=== PATIENT | female | born 1970 | race Caucasian/White ===

== ENCOUNTER 2017-04-30 09:57 | Observation (INO) ==
--- NOTE | 2017-04-30 10:04 | Emergency Department Note ---
Disposition Clinical Impression: Iron adverse reaction Qualifiers: Encounter type: initial encounter Qualified Code(s): T45.4X5A - Adverse effect of iron and its compounds, initial encounter Chest pain Qualifiers: Chest pain type: unspecified Qualified Code(s): R07.9 - Chest pain, unspecified Disposition: Home, Self-Care Condition: Good Reasons to Return/Additional Instructions: Follow-up with primary care physician as needed. Continue to take benadryl as needed for rash, tylenol as needed for headache. Return to the ER for any new or worsening symptoms including return of chest pain, shortness of breath, development of facial swelling, tongue swelling, difficulty breathing or swallowing. Referrals: Charlotte Dunn DO [Primary Care Provider] - Forms: ED Satisfaction Letter, Work/School Release Time of Disposition: 14:06 Chest Pain HPI - General Chief Complaint: ED General Medical Stated Complaint: Reaction to Iron infusion Time Seen by Provider: 04/30/17 10:01 Source: patient Mode of arrival: ambulatory Limitations: no limitations Vital Signs Reviewed: Yes Nursing Notes Reviewed: Yes - History of Present Illness HPI Narrative: Patient is a 46-year-old female with past medical history of anemia, iron deficiency. She states that she has had had this diagnosis for several months. She has been taking daily and iron supplements without any improvement. Therefore, she was started on iron infusions. Today was her first time infusion. Prior to appointment, patient had no symptoms. The patient was started around 9:30 AM, presently 30 minutes ago. About 5 minutes into the infusion, nursing staff states the patient began complaining of chest tightness , shortness of breath, headache, back pain, generalized fatigue, facial flushing. Patient received about 25 mL of the infusion and then it was stopped. Patient was brought to the ER due to nursing staff having no standing orders at [facility] for Benadryl or Tylenol. Currently, the patient states that hurt his chest tightness has gone away, shortness breath has resolved. She currently has a headache and low back pain. Otherwise, no other symptoms currently. Denies any fever, nausea, vomiting, stiff neck, URI symptoms, abdominal pain at this time. Severity scale (1-10): 0 - Related Data Home Medications Medication Instructions Recorded Confirmed Cholecalciferol (D-3) [Vitamin D] 2,000 unit PO DAILY 01/02/16 09/07/16 Estradiol [Vivelle-Dot] 1 each TD Q3D 01/02/16 09/07/16 Gabapentin [Neurontin] 600 mg PO HS 01/02/16 09/07/16 Pantoprazole Sodium [Protonix] 40 mg PO DAILY 01/02/16 09/07/16 ARIPiprazole [Abilify] 5 mg PO HS 06/21/16 09/07/16 FLUoxetine HCl [Fluoxetine HCl] 40 mg PO DAILY 06/21/16 09/07/16 Furosemide [Lasix] 20 mg PO DAILY 09/07/16 09/07/16 Multivitamin [One Daily 1 each PO DAILY 09/07/16 09/07/16 Multivitamin] Phentermine/Topiramate [Qsymia 7.5 1 each PO DAILY 09/07/16 09/07/16 mg-46 mg Capsule] traZODone [TraZODone] 50 - 100 mg PO HS PRN 09/07/16 09/07/16 Previous Rx's Medication Instructions Recorded Ketorolac [Toradol] 10 mg PO Q6HR #15 tablet 11/20/16 Erythromycin OPTH Oint 1 appl BOTH EYES Q3H #1 tube 03/30/17 Allergies Allergy/AdvReac Type Severity Reaction Status Date / Time sulfamethoxazole Allergy Hives Verified 09/07/16 11:12 [From Bactrim] trimethoprim [From Bactrim] Allergy Hives Verified 09/07/16 11:12 All systems ED: reviewed and negative except as stated. Constitutional: Denies: fever Cardiovascular: Reports: chest pain Respiratory: Reports: dyspnea Gastrointestinal: Denies: abdominal pain, nausea, vomiting Musculoskeletal: Reports: back pain, myalgia. 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 Absent: tenderness, meningismus - Chest Chest inspection: Present: normal inspection, symmetric chest wall rise - Respiratory Respiratory exam: Present: normal lung sounds bilaterally. Absent: respiratory distress, wheezes, stridor, accessory muscle use, prolonged expiratory phase - Cardiovascular Cardiovascular exam: Present: regular rate, normal rhythm, normal heart sounds - Abdominal Exam Abdominal exam: Present: soft, Non-Tender. Absent: tenderness, distention, guarding, rebound, rigidity - Extremities Exam Extremities exam: Present: normal inspection, full ROM. Absent: tenderness, pedal edema - Neurological Exam Neurological exam: Present: alert, oriented X3 - Psychiatric Psychiatric exam: Present: normal affect, normal mood - Skin Skin exam: Present: warm, dry, intact, normal color Course Course Narrative: Vitals within normal limits. Physical exam shows heart regular rate and rhythm , lungs clear to auscultation, abdomen soft and benign. No rash present at this time. No lip or tongue swelling. No current difficulty with breathing or swallowing. Patient is in no acute distress. This is likely an adverse reaction from an iron infusion. We will give the patient a gram of Tylenol, 50 mg of Benadryl, 325 aspirin. Also perform cardiac workup including EKG, chest x -ray, troponin. We will trend troponin level in 2 hours. Chest discomfort was likely due to adverse reaction time of dictation but will perform cardiac workup for full assessment. 12:07 EKG showed normal sinus rhythm with no acute ST changes. Basic blood work showed no major abnormalities. Troponin negative. Two-hour troponin ordered for noon. Chest x-ray showed mildly enlarged cardiomediastinal silhouette but could represent primary megaly or pericardial effusion. Bedside ultrasound showed no pericardial effusion. However, patient now complains of return of chest tightness. We will perform CT of the chest for further evaluation. Patient also relates her headache 7 out of 10 after receiving aspirin and Tylenol. Discussed possible admission for chest pain rule out the patient. She was agreeable with this plan. 14:02 CTA of the chest was negative for any acute cardiopulmonary process, negative for PE. Patient is still having mild to moderate chest discomfort despite the addition of [place] for head and chest pain. Waiting on 2 hour troponin and then will admit for chest pain rule out, trending troponin levels, possible echocardiogram in the morning. Chest X-Ray 04/30/17 10:04 IMPRESSION: Mildly enlarged cardiomediastinal silhouette may represent cardiomegaly and/or pericardial effusion. No focal consolidation, pneumothorax, or sizable pleural effusion. D/ / Andrzej Mackenzie MD / Andrzej Mackenzie MD Interpreting Provider: Andrzej Mackenzie MD Chest CTA 04/30/17 12:07 IMPRESSION: No evidence of pulmonary embolism or acute pulmonary abnormality. D/ / Jassi Wyman / Jassi Wyman Interpreting Provider: Jassi Wyman Chest X-Ray 04/30/17 10:04 IMPRESSION: Mildly enlarged cardiomediastinal silhouette may represent cardiomegaly and/or pericardial effusion. No focal consolidation, pneumothorax, or sizable pleural effusion. D/ / Andrzej Mackenzie MD / Andrzej Mackenzie MD Interpreting Provider: Andrzej Mackenzie MD Vital Signs Temperature 98.2 F 04/30/17 09:59 Pulse Rate 83 04/30/17 09:59 Respiratory Rate 16 04/30/17 09:59 Blood Pressure 134/86 04/30/17 09:59 O2 Sat by Pulse Oximetry 100 04/30/17 09:59 Temperature 98.2 F 04/30/17 09:59 Pulse Rate 76 04/30/17 14:22 Respiratory Rate 16 04/30/17 14:22 Blood Pressure 139/84 04/30/17 14:22 O2 Sat by Pulse Oximetry 94 04/30/17 14:22 Oxygen Delivery Oxygen Delivery Room Air Chest Pain - MDM Narrative Medical decision making narrative: Vitals within normal limits. Physical exam shows heart regular rate and rhythm , lungs clear to auscultation, abdomen soft and benign. No rash present at this time. No lip or tongue swelling. No current difficulty with breathing or swallowing. Patient is in no acute distress. This is likely an adverse reaction from an iron infusion. We will give the patient a gram of Tylenol, 50 mg of Benadryl, 325 aspirin. Also perform cardiac workup including EKG, chest x -ray, troponin. We will trend troponin level in 2 hours. Chest discomfort was likely due to adverse reaction time of dictation but will perform cardiac workup for full assessment. 12:07 EKG showed normal sinus rhythm with no acute ST changes. Basic blood work showed no major abnormalities. Troponin negative. Two-hour troponin ordered for noon. Chest x-ray showed mildly enlarged cardiomediastinal silhouette but could represent primary megaly or pericardial effusion. Bedside ultrasound showed no pericardial effusion. However, patient now complains of return of chest tightness. We will perform CT of the chest for further evaluation. Patient also relates her headache 7 out of 10 after receiving aspirin and Tylenol. Discussed possible admission for chest pain rule out the patient. She was agreeable with this plan. 14:02 CTA of the chest was negative for any acute cardiopulmonary process, negative for PE. Patient is still having mild to moderate chest discomfort despite the addition of [place] for head and chest pain. Waiting on 2 hour troponin and then will admit for chest pain rule out, trending troponin levels, possible echocardiogram in the morning. - Medical Records Medical records reviewed: Yes I reviewed the patient's medical records. - Lab Data Lab results reviewed: Yes I reviewed the patient's lab results. Result diagrams: 04/30/17 10:12 04/30/17 10:12 Lab Results 04/30/17 04/30/17 04/30/17 Range/Units 10:12 10:12 10:12 WBC 6.6 (4.3-11.1) K/mcL RBC 4.16 (3.82-4.97) M/mcL Hgb 10.8 L (11.5-15.4) g/dL Hct 35.1 L (35.3-44.9) % MCV 84.4 (83.0-100.0) fL MCH 26.0 L (28.0-33.3) pg MCHC 30.8 L (31.6-35.5) g/dL RDW 13.7 (11.5-14.5) % Plt Count 306 (140-400) K/mcL MPV 10.5 (9.4-12.4) fL Immature Gran % 0.9 (0-4) % Seg Neutrophils % 78.1 % Lymphocytes % 16.6 % Monocytes % 3.8 % Eosinophils % 0.3 % Basophils % 0.3 % Neutrophils # 5.2 (1.6-8.9) K/mcL Lymphocytes # 1.1 (0.6-4.6) K/mcL Monocytes # 0.3 (0.0-1.3) K/mcL Eosinophils # 0.0 (0.0-0.6) K/mcL Basophils # 0.0 (0.0-0.2) K/mcL Sodium 137 (136-145) mEq/L Potassium 4.2 (3.5-5.1) mEq/L Chloride 106 (98-107) mEq/L Carbon Dioxide 24 (23-29) mEq/L BUN 14 (6-20) mg/dL Creatinine 0.62 (0.60-1.20) mg/dL Est GFR ( Amer) > 60 (> 60) Est GFR (Non-Af Amer) > 60 (> 60) BUN/Creatinine Ratio 23 (6-26) Glucose 105 (70-105) mg/dL Calculated Osmolality 285 (280-300) Calcium 9.2 (8.6-10.3) mg/dL Troponin I < 0.03 (< 0.04) ng/mL 04/30/17 Range/Units 13:50 WBC (4.3-11.1) K/mcL RBC (3.82-4.97) M/mcL Hgb (11.5-15.4) g/dL Hct (35.3-44.9) % MCV (83.0-100.0) fL MCH (28.0-33.3) pg MCHC (31.6-35.5) g/dL RDW (11.5-14.5) % Plt Count (140-400) K/mcL MPV (9.4-12.4) fL Immature Gran % (0-4) % Seg Neutrophils % % Lymphocytes % % Monocytes % % Eosinophils % % Basophils % % Neutrophils # (1.6-8.9) K/mcL Lymphocytes # (0.6-4.6) K/mcL Monocytes # (0.0-1.3) K/mcL Eosinophils # (0.0-0.6) K/mcL Basophils # (0.0-0.2) K/mcL Sodium (136-145) mEq/L Potassium (3.5-5.1) mEq/L Chloride (98-107) mEq/L Carbon Dioxide (23-29) mEq/L BUN (6-20) mg/dL Creatinine (0.60-1.20) mg/dL Est GFR ( Amer) (> 60) Est GFR (Non-Af Amer) (> 60) BUN/Creatinine Ratio (6-26) Glucose (70-105) mg/dL Calculated Osmolality (280-300) Calcium (8.6-10.3) mg/dL Troponin I < 0.03 (< 0.04) ng/mL - EKG Data EKG attestation: Yes I reviewed and interpreted this EKG. EKG results narrative: 04/30/2017 at 10:03. Normal sinus rhythm. Rate 78, KS 136, QRS 94, QTC 406. No acute ST elevation or depression. Heart Score - Score History: Slightly Suspicious EKG: Normal Age: 45-65 Risk Factors: No risk factors known Troponin: Less than normal limit HEART Score Total: 1
[2017-04-30] MEDS ORDERED: Aspirin 325 MG TABLET PO ONE (10:05)
[2017-04-30 10:18] LABS: Basophils % 0.3 %; Eosinophils % 0.3 %; Hematocrit 35.1 % (35.3-44.9); Hemoglobin 10.8 g/dL (11.5-15.4); Immature Granulocytes % 0.9 % (0-4); Lymphocytes # 1.1 K/mcL (0.6-4.6); Lymphocytes % 16.6 %; Mean Corpuscular HGB Conc 30.8 g/dL (31.6-35.5); Mean Corpuscular Volume 84.4 fL (83.0-100.0); Mean Platelet Volume 10.5 fL (9.4-12.4); Monocytes # 0.3 K/mcL (0.0-1.3); Monocytes % 3.8 %; Neutrophils # 5.2 K/mcL (1.6-8.9); Platelet Count 306 K/mcL (140-400); Red Blood Count 4.16 M/mcL (3.82-4.97); Red Cell Distribution Width 13.7 % (11.5-14.5); Segmented Neutrophils % 78.1 %
[2017-04-30 10:36] LABS: BUN/Creatinine Ratio 23 (6-26); Blood Urea Nitrogen 14 mg/dL (6-20); Calcium 9.2 mg/dL (8.6-10.3); Carbon Dioxide 24 mEq/L (23-29); Chloride 106 mEq/L (98-107); Glucose 105 mg/dL (70-105); Osmolality,Calculated 285 (280-300); Potassium 4.2 mEq/L (3.5-5.1); Sodium 137 mEq/L (136-145); eGFR For African Americans > 60 (> 60); eGFR For Non-African Americans > 60 (> 60)
[2017-04-30] MEDS ORDERED: *HR* HYDROcodone/Acet 5/325 mg TABLET PO ONE (12:52)
[2017-04-30] MEDS ORDERED: *HR* LORazepam 1 MG TABLET PO ONE (14:02)
[2017-04-30] MEDS ORDERED: Nitroglycerin 0.4 MG TAB.SUBL SL PRN (14:46)
[2017-04-30] MEDS ORDERED: Naloxone 0.4 MG/ML INJ IVP PRN (14:48)
--- NOTE | 2017-04-30 15:14 | Internal Med History&Physical ---
<HudsonmikeyÁngel pedersen M - Last Filed: 04/30/17 15:11> Date of Encounter: 04/30/17 Time of Encounter: 15:11 Assessment and Plan (1) Chest pain Current visit: Yes Status: Acute We will admit the patient to the hospitalist service under observation status. Trend cardiac enzymes. We will check an echocardiogram. I believe most of the patient's symptoms are likely secondary to hypersensitivity/allergic reaction to iron transfusions. We will continue to monitor the patient. Check hemoglobin A1c as well as lipid panel to risk stratify the patient. The patient discussed factors include obesity and previous smoking. Given the fact that tomorrow is Tuesday, I plan on discharging the patient tomorrow as her cardiac enzymes remained not elevated and her Echocardiogram comes back unremarkable. Qualifiers: Chest pain type: unspecified Qualified Code(s): R07.9 - Chest pain, unspecified (2) GERD (gastroesophageal reflux disease) Current visit: Yes Status: Acute Continue patient's home medications. She is on Protonix Qualifiers: Esophagitis presence: without esophagitis Qualified Code(s): K21.9 - Gastro -esophageal reflux disease without esophagitis (3) Depression Current visit: Yes Status: Acute Resume home antidepressants. She takes trazodone and fluoxetine Qualifiers: Depression Type: unspecified Qualified Code(s): F32.9 - Major depressive disorder, single episode, unspecified (4) Restless leg syndrome Current visit: Yes Status: Acute Continue gabapentin. I think this is most likely coming from iron deficiency causing her restless leg. (5) DVT prophylaxis Current visit: Yes Status: Acute Lovenox (6) Iron adverse reaction Current visit: Yes Status: Acute Qualifiers: Encounter type: initial encounter Qualified Code(s): T45.4X5A - Adverse effect of iron and its compounds, initial encounter Internal Medicine - H&P: HPI Chief complaint: Chest pain Admitted From: Home Plans for Post Hospital Care: Home History of present illness: Ms. Lenz is a 46 year old female who has a history of GERD, iron deficiency anemia, depression, restless leg syndrome who [facility] symptoms including shortness of breath headache numbness in the back as well as chest pressure that she experienced only 5 minutes after iron incision had started. The patient has and diagnosed with iron deficiency anemia and has not responded well to oral supplements. Today she was referred for her first transfusion. 5 minutes into it she describes feeling of doom. She says she started experiencing chest pressure in the mid chest that was about 8 out of 10 with no radiation. She had no diaphoresis. She experienced difficulty in breathing saying that she was gasping for air. She also felt headache. And because of that she was transferred to the ER where she received Benadryl. She says all of her symptoms did resolve minutes after they started except for the chest pressure which continues to have. She underwent an evaluation in the ED with workup being unremarkable including troponins. EKG with no ST or T-wave changes. Rest unremarkable unremarkable. She remained hemodynamically stable in the ED although her blood pressure was somewhat elevated on initial presentation. She tells me she had a stress test back around 2004 which was treadmill stress test was unremarkable. She is a former smoker about a pack a day for 20 years but quit about 4-5 years ago. She has no family history of heart disease. She denies any fever or chills blurry Vision nausea vomiting, shortness of breath abdominal pain symptoms or neurological symptoms. Past Med Surg Social Fam HX - Past Medical History Medical history: GERD, kidney stones, migraine, other Psychiatric history: anxiety, depression - Past Surgical History Surgical History: , hysterectomy, bariatric surgery - Social History Smoking Status: Former smoker Smokeless Tobacco Status: No Alcohol use: none Drug use: none Internal Medicine - H&P: Meds Cholecalciferol (D-3) [Vitamin D] 2,000 unit PO DAILY 01/02/16 [History] Estradiol [Vivelle-Dot] 1 each TD Q3D 01/02/16 [History] Gabapentin [Neurontin] 600 mg PO HS 01/02/16 [History] Pantoprazole Sodium [Protonix] 40 mg PO DAILY 01/02/16 [History] ARIPiprazole [Abilify] 5 mg PO HS 06/21/16 [History] FLUoxetine HCl [Fluoxetine HCl] 40 mg PO DAILY 06/21/16 [History] Furosemide [Lasix] 20 mg PO DAILY 09/07/16 [History] Multivitamin [One Daily Multivitamin] 1 each PO DAILY 09/07/16 [History] Phentermine/Topiramate [Qsymia 7.5 mg-46 mg Capsule] 1 each PO DAILY 09/07/16 [ History] traZODone [TraZODone] 50 - 100 mg PO HS PRN 09/07/16 [History] Ketorolac [Toradol] 10 mg PO Q6HR #15 tablet 11/20/16 [Rx] Erythromycin OPTH Oint 1 appl BOTH EYES Q3H #1 tube 03/30/17 [Rx] 3 Allergy/AdvReac Type Severity Reaction Status Date / Time sulfamethoxazole Allergy Hives Verified 09/07/16 11:12 [From Bactrim] trimethoprim [From Bactrim] Allergy Hives Verified 09/07/16 11:12 All Systems PM: A 10-system review of systems was performed and is negative for pertinent findings except as documented above in the HPI. Review of systems: All systems reviewed are negative except as mentioned above - Constitutional Vitals: Temp Pulse Resp BP Pulse Ox 98.2 F 76 16 139/84 94 04/30/17 09:59 04/30/17 14:22 04/30/17 14:22 04/30/17 14:22 04/30/17 14:22 Exam: GEN: NAD HEENT: AT, NC, No cyanosis, oral mucosa is moist, No JVD Lymphatics: No lymphadenoapthy Eyes: Extrocular muscles intact, anicteric CVS:RRR. S1, S2, No m/r/g RESP: CTAB ABD: Soft, NT, ND, +BS EXT: No edema, No rashes, 2+ DP NEURO: Nonfocal, CN II-XII intact, No focal motor or sensory deficits Psych: Cooperative, Not anxious or depressed Internal Med - H&P Results - Labs CBC & Chem 7: 04/30/17 10:12 04/30/17 10:12 <Ernesto Leyva F - Last Filed: 04/30/17 15:37> Date of Encounter: 04/30/17 Internal Medicine - H&P: HPI History of present illness: Ms. Lenz is a 46 year old female All Systems PM: A 10-system review of systems was performed and is negative for pertinent findings except as documented above in the HPI. - Constitutional Vitals: Temp Pulse Resp BP Pulse Ox 98.2 F 94 16 137/87 97 04/30/17 09:59 04/30/17 15:20 04/30/17 15:20 04/30/17 15:20 04/30/17 15:20 Internal Med - H&P Results - Labs CBC & Chem 7: 04/30/17 10:12 04/30/17 10:12 - Attending Attestation I examined this patient and my medical decision-making was reviewed with the Resident Physician. I agree with the documented findings, disposition and treatment plan as described except to the extent set forth below. Nonspecific chest pain as well as possible allergic reaction. The patient had symptoms of chest pain as well as back pain following infusion of iron. The patient sent to the ER for further evaluation. Received antihistamine, some improvement of symptoms however has ongoing chest pain. We will admit for ACS rule out. Troponin as well as chest x-ray showed no acute findings. CT of the chest obtained shows no evidence of aortic dissection or pulmonary embolus.
[2017-04-30 15:59] LABS: Hemoglobin A1C 5.8 %
[2017-04-30] MEDS: Acetaminophen 325 MG TABLET PO SCH ×2 (17:50→23:02)
[2017-04-30 18:29] LABS: Chol/HDL Ratio 2.1 (0-4.9); Cholesterol 227 mg/dL (< 200); HDL Cholesterol 108 mg/dL (40-59); LDL Cholesterol,Calculated 102 mg/dL (0-99); Triglycerides 83 mg/dL (< 150)
[2017-04-30] MEDS: *HR* HYDROcodone/Acet 5/325 mg TABLET PO PRN (21:04)
[2017-05-01] MEDS: *HR* HYDROcodone/Acet 5/325 mg TABLET PO PRN (04:49)
[2017-05-01] MEDS: Acetaminophen 325 MG TABLET PO SCH (04:52)
[2017-05-01] MEDS ORDERED: *HR* Enoxaparin 40 MG/0.4 ML SYRINGE SQ SCH (06:00)
[2017-05-01 07:50] LABS: Basophils % 0.4 %; Eosinophils # 0.1 K/mcL (0.0-0.6); Eosinophils % 1.2 %; Hematocrit 32.7 % (35.3-44.9); Hemoglobin 10.3 g/dL (11.5-15.4); Immature Granulocytes % 0.2 % (0-4); Lymphocytes # 1.6 K/mcL (0.6-4.6); Lymphocytes % 30.3 %; Mean Corpuscular HGB Conc 31.5 g/dL (31.6-35.5); Mean Corpuscular Hemoglobin 26.3 pg (28.0-33.3); Mean Corpuscular Volume 83.4 fL (83.0-100.0); Mean Platelet Volume 10.6 fL (9.4-12.4); Monocytes # 0.4 K/mcL (0.0-1.3); Neutrophils # 3.1 K/mcL (1.6-8.9); Platelet Count 287 K/mcL (140-400); Red Blood Count 3.92 M/mcL (3.82-4.97); Red Cell Distribution Width 14.2 % (11.5-14.5); Segmented Neutrophils % 60.9 %
[2017-05-01 08:16] LABS: BUN/Creatinine Ratio 21 (6-26); Blood Urea Nitrogen 13 mg/dL (6-20); Calcium 8.7 mg/dL (8.6-10.3); Carbon Dioxide 27 mEq/L (23-29); Chloride 107 mEq/L (98-107); Glucose 95 mg/dL (70-105); Magnesium 1.9 mg/dL (1.6-2.6); Osmolality,Calculated 290 (280-300); Sodium 140 mEq/L (136-145); eGFR For African Americans > 60 (> 60); eGFR For Non-African Americans > 60 (> 60)
--- NOTE | 2017-05-01 09:22 | Discharge Summary ---
Date of Encounter: 05/01/17 Time of Encounter: 09:20 - Discharge Diagnosis (1) Chest pain Priority: Primary Status: Acute Qualifiers: Chest pain type: unspecified Qualified Code(s): R07.9 - Chest pain, unspecified (2) GERD (gastroesophageal reflux disease) Priority: Secondary Status: Acute Qualifiers: Esophagitis presence: without esophagitis Qualified Code(s): K21.9 - Gastro -esophageal reflux disease without esophagitis (3) Depression Priority: Secondary Status: Acute Qualifiers: Depression Type: unspecified Qualified Code(s): F32.9 - Major depressive disorder, single episode, unspecified (4) Restless leg syndrome Priority: Secondary Status: Acute (5) Iron adverse reaction Priority: Primary Status: Acute Qualifiers: Encounter type: initial encounter Qualified Code(s): T45.4X5A - Adverse effect of iron and its compounds, initial encounter - Discharge Medications Home Medications: Cholecalciferol (D-3) [Vitamin D] 2,000 unit PO DAILY 01/02/16 [History] Gabapentin [Neurontin] 600 mg PO HS 01/02/16 [History] Pantoprazole Sodium [Protonix] 40 mg PO DAILY 01/02/16 [History] FLUoxetine HCl [Fluoxetine HCl] 80 mg PO DAILY 06/21/16 [History] Multivitamin [One Daily Multivitamin] 1 tab PO DAILY 09/07/16 [History] traZODone [TraZODone] 100 - 200 mg PO HS PRN 09/07/16 [History] Rotigotine [Neupro] 1 patch TD DAILY 04/30/17 [History] Allergies/Adverse Reactions: 3 Allergy/AdvReac Type Severity Reaction Status Date / Time sulfamethoxazole Allergy Hives Verified 09/07/16 11:12 [From Bactrim] trimethoprim [From Bactrim] Allergy Hives Verified 09/07/16 11:12 Date of admission: 04/30/17 15:09 Primary care physician: Gurpreet Penn - Patient Status Disposition: Home, Self-Care Condition: Fair Overall status at discharge: patient is back to baseline - Discharge Instructions Follow Up With: Charlotte Dunn DO [Primary Care Provider] - - Diet and Activity Activity: increase activity as tolerated Diet: regular diet Hospital course: Ms. Lenz is a 46 year old female who has a history of GERD, iron deficiency anemia, depression, restless leg syndrome who presented to us from [facility] with multiple symptoms including shortness of breath headache numbness in the back as well as chest pressure that she experienced only 5 minutes after iron transfusion had started. The patient was diagnosed with iron deficiency anemia and has not responded well to oral supplements. She was referred for her first transfusion. 5 minutes into it she describes feeling of doom. She started experiencing chest pressure in the mid chest that was about 8 out of 10 with no radiation. She had no diaphoresis. She experienced difficulty in breathing saying that she was gasping for air. She also felt headache. Because of that she was transferred to the ER where she received Benadryl. She says all of her symptoms did resolve minutes after they started except for the chest pressure which continued. She underwent an evaluation in the ED with workup being unremarkable including troponins. EKG with no ST or T-wave changes. Rest or work up was unremarkable. She remained hemodynamically stable in the ED. She was admitted and observed overnight. Cardiac enzymes remained not elevated. She had no recurrence of the symptoms throughout the night or the morning when I saw her again. Echocardiogram was done which came back unremarkable. I held off on keeping the patient for a stress test as I did not feel that this was cardiac in nature. I suspect this was somewhat of an allergic/hypertensive severe reaction to transfusion. She is to follow-up with her primary care physician and if felt needed she can be scheduled as an outpatient for a stress test. - Time Spent with Patient Total time spent providing and/or coordinating discharge services: Greater than 30 minutes - Constitutional Vitals: Temp Pulse Resp BP Pulse Ox 98.6 F 77 17 112/75 95 05/01/17 06:52 05/01/17 06:52 05/01/17 06:52 05/01/17 06:52 05/01/17 06:52 Exam: GEN: NAD CVS: RRR. S1, S2, No m/r/g RESP: CTAB ABD: Soft, NT, ND, +BS EXT: No edema. 2+ DP. No rashes NEURO: Nonfocal
[2017-05-01 10:54] VITALS: BP 112/72
--- NOTE | 2017-05-03 19:25 | Electrocardiograph Report ---
[address] [place], [place] [address] Test Date: 2017-04-30 Pat Name: Praveena Lenz Department: 103 Room: [facility] Gender: F [employer] Supervisor: EUN : 1970 Requested By: Leidy Farr Order Number: [id number] Reading MD: Girish Peterson MD Measurements Intervals [place] Rate: 78 P: 54 NE: 136 QRS: 12 QRSD: 94 T: 39 QT: 373 QTc: 406 Interpretive Statements SINUS RHYTHM BASELINE ARTIFACT Electronically Signed On 05-03-2017 19:24:10 EST by Girish Peterson MD
--- NOTE | 2017-05-03 20:11 | Electrocardiograph Report ---
[address] [place] [address] Test Date: 2017-04-30 Pat Name: Praveena Lenz Department: 113 Room: [facility] Gender: Die Maker Stamping: WILLIAM : 1970 Requested By: Ole Monroe Order Number: [id number] Reading MD: Girish Peterson MD Measurements Intervals [place] Rate: 83 P: 40 [place]: 151 QRS: 8 QRSD: 94 T: 21 QT: 375 QTc: 415 Interpretive Statements SINUS RHYTHM Electronically Signed On 05-03-2017 20:10:01 EST by Girish Peterson MD
== END 2017-05-01 14:15 | disposition home or self-care (01) | DRG 313 ==
LOC: EMEROO 09:57 → 3BNU 09:57
PROVIDERS: ADMIT Registered Nurse; ATTEND Registered Nurse